=== PATIENT | male | born 1965 | race Two or more races ===

== ENCOUNTER 2023-04-19 08:05 | Outpatient (CLI) | payer OTHER | END 2023-04-19 08:16 | disposition home or self-care (01) | LOC: TOM 08:05 | PROVIDERS: ATTEND Surgery | DX: R22.2 Localized swelling, mass and lump, trunk (principal) ==

== ENCOUNTER 2023-05-31 05:46 | Day surgery (SDC) | payer OTHER ==
[2023-05-19 09:34] LABS: PH,URINE 6.5 (5.0-8.0); URINE APPEARANCE Clear; URINE BILIRRUBIN Negative (NEGATIVE); URINE BLOOD Negative; URINE COLOR Yellow; URINE GLUCOSE Negative (NEGATIVE); URINE LEUKOCYTE Trace; URINE NITRATE Negative; URINE PROTEIN Negative (NEGATIVE)
[2023-05-19 09:40] LABS: HEMATOCRIT 42.4 % (39.0-48.0); HEMOGLOBIN 14.6 g/dL (13-16.00); MEAN CORPUSCULAR HGB CONC 34.5 g/dl (32.0-36.0); PLATELET COUNT 202 K/uL (150-450); RED BLOOD COUNT 4.87 M/uL (4.00-6.00); RED CELL DISTRIBUTION WIDTH 13.9 % (11.5-14.5)
[2023-05-19 09:41] LABS: URINE BACTERIA 541.7 uL (0.0-1933); URINE EPITHELIAL CELLS 12.1 uL (0.0-38.8); URINE RBC 3.7 uL (0.0-20.8); URINE WBC 8.1 uL (0.0-23.2)
[2023-05-19 10:14] LABS: INR 1.06; PARTIAL THROMBOPLASTIN TIME 30.3 SECONDS (22.0-34.0); PROTHROMBIN TIME 11.1 SECONDS (9.0-11.5)
[2023-05-19 10:21] LABS: ALBUMIN 3.9 gm/dL (3.4-5.0); BILIRUBIN TOTAL 0.77 mg/dL (0.3-1.2); CALCIUM 8.7 mg/dL (8.5-10.1); CREATININE SERUM 0.59 mg/dL (0.70-1.30); GFR 142.62; GLOBULINA 3.3 G/DL (2.4-3.5); POTASSIUM 4.07 mEq/L (3.5-5.1); TOTAL PROTEIN 7.2 gm/dL (6.4-8.2)
[~2023-05-31 05:46] MED LIST: LIPITOR40 MG PO; METFORMIN HCL850 M1 PO; MULTIPLE VITAM1 EAC2 PO; TRADJENTA5 MG PO; ZESTRIL10 M1 PO
== END 2023-05-31 10:40 | disposition home or self-care (01) ==
LOC: CIR.AMB 05:46
PROVIDERS: ATTEND Surgery
DX: D17.1 Benign lipomatous neoplasm of skin and subcutaneous tissue of trunk (principal); Z20.822 Contact with and (suspected) exposure to COVID-19